=== PATIENT | female | born 1940 | race Two or more races ===

== ENCOUNTER 2022-10-18 17:53 | Emergency (ER) | payer OTHER ==
[~2022-10-18] VITALS: Ht 160 cm; Wt 58.5 kg
[2022-10-18] MEDS ORDERED: LOSARTAN POTASS25 MG PO (18:56)
[2022-10-18] MEDS ORDERED: NABUMETONE750 MG PO (18:57)
[2022-10-18] MEDS ORDERED: PREDNISONE20 MG (18:57)
[2022-10-18] MEDS ORDERED: NORFLEX100MG PO (18:57)
== END 2022-10-18 21:24 | disposition home or self-care (01) ==
LOC: ER 17:53
DX: S42.391A Other fracture of shaft of right humerus, initial encounter for closed fracture (principal); W18.39XA Other fall on same level, initial encounter; Y93.89 Activity, other specified; Y92.89 Other specified places as the place of occurrence of the external cause; Y99.8 Other external cause status; Z20.822 Contact with and (suspected) exposure to COVID-19; I10 Essential (primary) hypertension

== ENCOUNTER 2022-10-19 11:35 | Outpatient (CLI) | payer OTHER ==
[~2022-10-19 11:35] MED LIST: LOSARTAN POTASS25 MG PO; NABUMETONE750 MG PO; NORFLEX100MG PO; PREDNISONE20 MG
== END 2022-10-19 11:47 | disposition home or self-care (01) ==
LOC: RAD 11:35
PROVIDERS: ATTEND Orthopaedic Surgery
DX: S42.241A 4-part fracture of surgical neck of right humerus, initial encounter for closed fracture (principal); Z76.89 Persons encountering health services in other specified circumstances

== ENCOUNTER 2023-05-11 09:50 | Outpatient (CLI) | payer OTHER ==
[2023-05-11 11:45] LABS: ALBUMIN 3.8 gm/dL (3.4-5.0); BILIRUBIN TOTAL 0.47 mg/dL (0.3-1.2); CALCIUM 9.1 mg/dL (8.5-10.1); CREATININE SERUM 0.93 mg/dL (0.55-1.02); GFR 57.86; MAGNESIUM 2.3 mg/dL (1.8-2.4); PHOSPHOROUS 3.8 mg/dL (2.5-4.9); POTASSIUM 4.79 mEq/L (3.5-5.1); TOTAL PROTEIN 6.8 gm/dL (6.4-8.2)
== END 2023-05-11 09:51 | disposition home or self-care (01) ==
LOC: LAB 09:50
PROVIDERS: ATTEND Orthopaedic Surgery
DX: E55.9 Vitamin D deficiency, unspecified (principal); M85.9 Disorder of bone density and structure, unspecified; E83.42 Hypomagnesemia; E56.1 Deficiency of vitamin K; E21.3 Hyperparathyroidism, unspecified; E88.89 Other specified metabolic disorders; M81.8 Other osteoporosis without current pathological fracture

== ENCOUNTER 2023-12-28 10:38 | Outpatient (CLI) | payer OTHER | END 2023-12-28 10:51 | disposition home or self-care (01) | LOC: MRI 10:38 | PROVIDERS: ATTEND Orthopaedic Surgery | DX: S42.241P 4-part fracture of surgical neck of right humerus, subsequent encounter for fracture with malunion (principal) | CPT/HCPCS: 73221 ==

== ENCOUNTER 2024-01-27 16:28 | Outpatient (CLI) | payer OTHER | END 2024-01-27 16:39 | disposition home or self-care (01) | LOC: RAD 16:28 | PROVIDERS: ATTEND Internal Medicine Cardiovascular Disease | DX: I10 Essential (primary) hypertension (principal) ==

== ENCOUNTER 2024-06-12 14:00 | Outpatient (CLI) | payer OTHER | END 2024-06-12 14:05 | disposition home or self-care (01) | LOC: RAD 14:00 | PROVIDERS: ATTEND Physical Medicine & Rehabilitation | DX: M25.511 Pain in right shoulder (principal) ==